=== PATIENT | female | born 1960 | race African-American/Black ===

== ENCOUNTER → 2018-11-16 | Outpatient (CLI) | payer OTHER | END | disposition home or self-care (01) | LOC: RADPV 13:00 | PROVIDERS: ATTEND Hospitalist | DX: N28.1 Cyst of kidney, acquired (principal); N18.3 Chronic kidney disease, stage 3 (moderate) | CPT/HCPCS: 76770 ==

== ENCOUNTER 2020-05-16 07:18 | Emergency (ER) | payer OTHER ==
[~2020-05-16] VITALS: Ht 154.9 cm; Wt 79.5 kg
[2020-05-16] MEDS ORDERED: CLON0.1T83 PO (07:30)
[2020-05-16] MEDS ORDERED: SPIR25 PO (07:30)
[2020-05-16] MEDS ORDERED: CARV25TA32 PO (07:30)
[2020-05-16] MEDS ORDERED: PANT40TA54 PO (07:30)
[2020-05-16] MEDS ORDERED: SERT50TA12 PO (07:30)
[2020-05-16] MEDS ORDERED: LISI40TA4 PO (07:30)
[2020-05-16] MEDS ORDERED: CYCL10TA7 PO (07:30)
[2020-05-16] MEDS ORDERED: CALC0.253 PO (07:30)
[2020-05-16] MEDS ORDERED: AMIT50TA3 PO (07:30)
[2020-05-16] MEDS ORDERED: SIMV-43 PO (07:30)
[2020-05-16 08:53] LABS: BASOPHILS % (AUTO) 0.9 % (0.0-2.0); EOSINOPHILS % (AUTO) 2.5 % (1.0-6.0); HEMATOCRIT 39.2 % (36-46); LYMPHOCYTES % (AUTO) 29.9 % (22.0-44.0); MEAN CORPUSCULAR HEMOGLOBIN 28.4 pg (26.0-34.0); MEAN CORPUSCULAR HGB CONC 33.3 G/dL (31.0-37.0); MEAN CORPUSCULAR VOLUME 85 fL (80-100); MONOCYTES # (AUTO) 0.7 K/uL (0.1-1.0); MONOCYTES % (AUTO) 6.5 % (2.0-9.0); NEUTROPHILS # (AUTO) 6.1 K/uL (1.8-7.7); NEUTROPHILS % (AUTO) 60.2 % (40.0-70.0); PLATELET COUNT (AUTO) 220 K/uL (150-450); RED BLOOD CELL COUNT(AUTO) 4.59 MIL/uL (4.00-5.20); RED CELL DISTRIBUTION WIDTH 14.4 % (11.5-14.5)
[2020-05-16 09:11] LABS: ALBUMIN 3.5 g/dL (3.4-5.0); BILIRUBIN,TOTAL 0.2 mg/dL (0.1-1.0); CALCIUM, TOTAL 9.2 mg/dL (8.8-10.5); CREATININE 1.82 mg/dL (0.60-1.30); TOTAL PROTEIN, SERUM 7.5 g/dL (6.4-8.2)
[2020-05-16] MEDS ORDERED: SODIUM POLYSTYRENE SULFONATE 15 GM/60 ML SUSPENSION BOTTLE PO ONE (09:30)
[2020-05-16] MEDS ORDERED: INSULIN REGULAR, HUMAN 100 UNITS/ML IVP ONE (10:00)
[2020-05-16] MEDS ORDERED: DEXTROSE 50%-WATER 25 GM/50 ML SYRINGE IVP ONE (10:00)
[2020-05-16 13:39] VITALS: BP 149/83
== END 2020-05-16 13:45 | disposition home or self-care (01) ==
LOC: EMS 07:22
DX: E87.5 Hyperkalemia (principal); I10 Essential (primary) hypertension; Z88.8 Allergy status to other drugs, medicaments and biological substances; Z79.899 Other long term (current) drug therapy
CPT/HCPCS: 36415; 80053; 84132; 85025; 93005; 96374; 96375; 99285; J1815

== ENCOUNTER 2022-03-18 14:25 | Emergency (ER) | payer OTHER ==
[~2022-03-18] VITALS: Ht 160 cm; Wt 77.3 kg
[~2022-03-18 14:25] MED LIST: AMIT50TA3 PO; CALC0.253 PO; CARV25TA32 PO; CLON0.1T2 PO; CYCL10TA16 PO; LISI40TA9 PO; PANT40TA54 PO; SERT-439 PO; SIMV-43 PO; SPIR-37 PO
[2022-03-18 14:34] VITALS: BP 114/92
[2022-03-18] MEDS ORDERED: LOSA-382 PO (14:35)
[2022-03-18] MEDS ORDERED: GLIP5TAB12 PO (14:35)
[2022-03-18] MEDS ORDERED: NIFE90TA65 PO (14:35)
[2022-03-18] MEDS ORDERED: EXEM25TA PO (15:37)
[2022-03-18] MEDS ORDERED: HYDR200T4 PO (15:37)
[2022-03-18] MEDS ORDERED: HYDR-4061 PO (15:37)
[2022-03-18] MEDS ORDERED: AMLO10TA55 PO (15:37)
[2022-03-18] MEDS ORDERED: HYDR25TA84 PO (15:37)
[2022-03-18] MEDS ORDERED: DULA3PEN SQ (15:37)
[2022-03-18] MEDS ORDERED: HYDROCODONE/ACETAMINOPHEN 5-325 MG TABLET PO ONE (16:00)
[2022-03-18] MEDS ORDERED: KETOROLAC TROMETHAMINE 30 MG/ML VIAL IM ONE (16:00)
== END 2022-03-18 16:25 | disposition home or self-care (01) ==
LOC: EMS 14:26
DX: M77.02 Medial epicondylitis, left elbow (principal); Z88.8 Allergy status to other drugs, medicaments and biological substances; Z79.899 Other long term (current) drug therapy
CPT/HCPCS: 99283; 82962; 96372; J1885